=== PATIENT | female | born 1965 | race African-American/Black ===

== ENCOUNTER → 2017-11-02 | Day surgery (SDC) | payer OTHER ==
--- NOTE | 2017-11-02 13:42 | OP ---
DATE OF OPERATION: 11/02/2017 PREOPERATIVE DIAGNOSIS: Abnormal right mammography. POSTOPERATIVE DIAGNOSIS: Abnormal right mammography. PROCEDURE: Right breast stereotactic needle biopsy with clip x2. SURGEON: Alessandra Ashley MD ANESTHESIA: Local. COMPLICATIONS: None. This was a sterile procedure. INDICATIONS FOR PROCEDURE: Patient presented for screening mammography that noted multiple areas of microcalcifications throughout both the right and left breast, however, there were 2 specific cluster microcalcifications in the upper inner quadrant as well as the upper outer quadrant, for which biopsy was recommended. The procedure was discussed, with all the questions answered. PROCEDURE IN DETAIL: Patient was brought to [facility] in [place], laid prone on the OR table. Using the cranial approach, first the upper inner quadrant calcifications were identified. A stereo pair was obtained. A target was chosen. There was a positive stroke margin. Using Betadine and 1% lidocaine, a 10-gauge Suros device was used to take several cores from this area. Cores showed calcification within them. These were handled in the usual calcification protocol. A T-shaped clip was deployed in the area. Hemostasis was assured with direct pressure and Steri-Strips were used to close the incision. The patient was repositioned and the upper outer quadrant calcifications in the right breast were identified. A stereo pair was obtained. Our target was chosen. There was a positive stroke margin. Using Betadine and 1% lidocaine, a 10-gauge Suros device was used to take several cores from this area. Cores showed calcification within them. These were handled in the usual calcification protocol. A bar-shaped clip was deployed in the area. Hemostasis was assured with direct pressure. Both incisions were then closed with Steri-Strips. She tolerated the procedure well and [facility] good [facility]. ALESSANDRA ASHLEY M.D. [id number]
--- NOTE | 2017-11-03 16:27 | PATH ---
Surgical Pathology Report Patient Name: LENA ROLLINS [facility]. Rec. #: [id number] /Age/Gender: 1965 (Age: 52) / F Account: [id number] Location: [facility] Taken: 11/02/2017 Received: 11/02/2017 Reported: 11/03/2017 Physicians: Alessandra Pham M.D. Specimen(s) Received A: RIGHT BREAST SPECIMEN SITE 1 UPPER INNER WITH CALCIFICATIONS B: RIGHT BREAST SPECIMEN SITE 1 UPPER INNER WITHOUT CALCIFICATIONS C: RIGHT BREAST SPECIMEN SITE 2 UPPER OUTER WITH CALCIFICATIONS D: RIGHT BREAST SPECIMEN SITE 2 UPPER OUTER WITHOUT CALCIFICATIONS Clinical History Clinical information: None palpable lesion Mammographic findings: Microcalcification, suspicious Final Diagnosis A. BREAST, RIGHT, WITH CALCIFICATION, SITE #1, UPPER INNER, STEREOTACTIC CORE BIOPSY: BENIGN BREAST TISSUE WITH PROLIFERATIVE FIBROCYSTIC CHANGES INCLUDING STROMAL FIBROSIS, MICROCYSTS, APOCRINE METAPLASIA, FOCAL USUAL DUCTAL HYPERPLASIA AND ASSOCIATED MICROCALCIFICATIONS. B. BREAST, RIGHT, WITHOUT CALCIFICATION, SITE #1, UPPER INNER, STEREOTACTIC CORE BIOPSY: BENIGN BREAST TISSUE WITH PROLIFERATIVE FIBROCYSTIC CHANGES INCLUDING STROMAL FIBROSIS, MICROCYSTS, APOCRINE METAPLASIA, AND FOCAL USUAL DUCTAL HYPERPLASIA. C. BREAST, RIGHT, WITH CALCIFICATION, SITE #2, UPPER OUTER, STEREOTACTIC CORE BIOPSY: BENIGN BREAST TISSUE WITH PROLIFERATIVE FIBROCYSTIC CHANGES INCLUDING STROMAL FIBROSIS, MICROCYSTS, APOCRINE METAPLASIA, FOCAL USUAL DUCTAL HYPERPLASIA AND ASSOCIATED MICROCALCIFICATIONS. D. BREAST, RIGHT, WITHOUT CALCIFICATION, SITE #2, UPPER OUTER, STEREOTACTIC CORE BIOPSY: BENIGN BREAST TISSUE WITH PROLIFERATIVE FIBROCYSTIC CHANGES INCLUDING STROMAL FIBROSIS, MICROCYSTS, APOCRINE METAPLASIA, AND FOCAL USUAL DUCTAL HYPERPLASIA. Electronically Signed Hilaria Mendenhall M.D. Gross Description A. Received in formalin labeled "right breast with calcification, site 1, upper inner" are multiple ibanez-yellow, cylindrical portions of fibroadipose tissue measuring in aggregate 2 x 2 x 0.4 cm. The specimens are submitted in toto in one cassette. B. Received in formalin labeled "right breast without calcification, site 1, upper inner" are multiple ibanez-yellow, cylindrical portions of fibroadipose tissue measuring in aggregate 1.5 x 1.5 x 0.4 cm. The specimens are submitted in toto in one cassette. C. Received in formalin labeled "right breast with calcification, site 2, upper outer" are multiple ibanez-yellow, cylindrical portions of fibroadipose tissue measuring in aggregate 2 x 2 x 0.4 cm. The specimens are submitted in toto in one cassette. D. Received in formalin labeled "right breast without calcification, site 2, upper outer" are multiple ibanez-yellow, cylindrical portions of fibroadipose tissue measuring in aggregate 2 x 1.5 x 0.4 cm. The specimens are submitted in toto in one cassette. Total formalin fixation time: Between 9-10 hours. YASMIN/11/02/2017 nazia11/02/2017
== END | disposition home or self-care (01) ==
LOC: FMAMMOTONE 10:17
PROVIDERS: ATTEND Surgery
PROC: 0HBT3ZX Excision of Right Breast, Percutaneous Approach, Diagnostic (ICD-10-PCS; principal; 2017-11-02)
DX: N60.31 Fibrosclerosis of right breast (principal); R92.8 Other abnormal and inconclusive findings on diagnostic imaging of breast; N60.11 Diffuse cystic mastopathy of right breast; N60.81 Other benign mammary dysplasias of right breast; N64.89 Other specified disorders of breast
CPT/HCPCS: 19081; 19082; 87899; 88305-TC; A4648